=== PATIENT | female | born 1940 | race Caucasian/White ===

== ENCOUNTER → 2017-07-25 | Outpatient (CLI) | payer MEDICARE, BC ==
[~2017-07-25] MED LIST: AMBIEN PAK10 MG; Z.0.MELOXICAM15 MG; [UNRECOGNIZED DRUG - OTHER]
--- NOTE | 2017-08-01 18:11 | Diagnostic Imaging Report ---
#[id number] - MGSCRBIL #BILATERAL DIGITAL SCREENING MAMMOGRAM WITH CAD: 07/25/2017 Comparison is made to exams dated: 01/20/2013 mammogram and 12/13/2011 mammogram - [facility]. Current study contains 4 films. There are scattered fibroglandular elements in both breasts. Current study was also evaluated with a Computer Aided Detection (CAD) system. There are benign scattered calcifications in both breasts. There is a mole marker on the left breast. No significant masses, calcifications, or other findings are seen in either breast. There has been no significant interval change. IMPRESSION: BENIGN There is no mammographic evidence of malignancy. A 1 year screening mammogram is recommended. The patient will be notified by letter of the results. Nishant cardenas/brandee:07/31/2017 14:19:41 Research Interviewer: Abby WERNER(Marissa)(Herbert), [facility] letter sent: Compared to Prior B9 Mammogram BI-RADS: 2 Benign
== END ==
LOC: MAMMO 08:49
PROVIDERS: ATTEND Family Medicine
DX: Z12.31 Encounter for screening mammogram for malignant neoplasm of breast (principal)
CPT/HCPCS: 77067

== ENCOUNTER 2017-12-24 16:18 | Emergency (ER) | payer MEDICARE, BC ==
[~2017-12-24] VITALS: Ht 157.5 cm; Wt 68.0 kg
[2017-12-24] MEDS ORDERED: ONDANSETRON HCL INJ 2 MG/ML VIAL IV STA (17:36)
[2017-12-24] MEDS ORDERED: MORPHINE SULFATE INJ 4 MG/ML INJ IV PRN (18:00)
[2017-12-24] MEDS ORDERED: MORPHINE SULFATE INJ 4 MG/ML INJ IV ONE (18:00)
--- NOTE | 2017-12-24 18:09 | Diagnostic Imaging Report ---
PROCEDURE:X-RAY RIGHT ANKLE, COMPLETE TECHNIQUE:AP, lateral, and oblique views of the right ankle. INDICATION:Fall, ankle pain COMPARISON:None. FINDINGS: Mildly displaced oblique fracture through the fibula at the level of the syndesmosis and avulsion of the medial malleolus with associated soft tissue swelling. CONCLUSION: Mildly displaced oblique fracture through the fibula at the level of the syndesmosis and avulsion of the medial malleolus. Dictated by: Roni Najera M.D. on 12/24/2017 at 18:15 Electronically approved by: Roni Najera M.D. on 12/24/2017 at 18:15
--- NOTE | 2017-12-24 18:26 | Diagnostic Imaging Report ---
History:Fall, hit the for head Comparison studies:MRI brain 12/08/2009 Technique: Axial images were obtained from the skull base to the vertex. Coronal and sagittal images reconstructed from the axial data. Intravenous contrast: None Findings: Scalp/skull: No abnormalities. Extra-axial spaces: No masses. No fluid collections. Brain sulci: Mildly prominent. Ventricles: Mild compensatory dilatation. No hydrocephalus. Parenchyma: Confluent hypodensities in the supratentorial white matter are small vessel ischemic changes. Encephalomalacia at the mid corpus callosum body No masses, hemorrhage, acute or chronic cortical vascular insults. Sellar/suprasellar region: No abnormalities. Craniocervical junction: Patent foramen magnum. No Chiari one malformation. Incidental findings: Atherosclerotic calcifications in the carotid siphons . Impression: No acute abnormalities. Chronic findings: 1. Mild generalized volume loss. 2. Nonspecific confluent supratentorial white matter hypodensities, could be seen in severe chronic microvascular ischemic changes. Signed by: DR Sukhjinder Carrillo M.D. on 12/24/2017 6:22 PM
--- NOTE | 2017-12-24 18:30 | Diagnostic Imaging Report ---
History: Fall Comparison studies: None Technique: Axial images were obtained through the cervical region.. Coronal and sagittal images reconstructed from the axial data.. Intravenous contrast: None Findings: Fractures: None. Soft tissues: No gross abnormalities. Atlantoaxial articulation: No acute abnormality. Decreased predental space, sclerotic changes and marginal osteophytes. Alignment: Straightening of the normal lordosis. No scoliosis. Cervicomedullary junction: No abnormalities. The foramen magnum is patent. Vertebrae: No infection or neoplasm. Degenerative changes: At C3-4 bilateral uncinate process and facet hypertrophy results in mild canal stenosis and moderate bilateral foraminal narrowing. At C4-5, right uncinate process hypertrophy and facet hypertrophy results in mild right foraminal narrowing without significant canal stenosis. At C5-6, bilateral uncinate process hypertrophy and facet hypertrophy results in mild bilateral foraminal narrowing. At C6-7, bilateral uncinate process hypertrophy results in mild right and moderate left foraminal narrowing without significant canal stenosis. IMPRESSION: 1. No acute cervical spine abnormalities. Degenerative changes as described above 2. Cannot exclude ligament, spinal cord and or vascular abnormalities on the basis of this examination. Signed by: DR Sukhjinder Carrillo M.D. on 12/24/2017 6:27 PM
[2017-12-24] MEDS ORDERED: ULTRAM50 MG PO (18:49)
[2017-12-24] MEDS ORDERED: walker (18:54)
[2017-12-24 19:28] VITALS: BP 129/65
== END 2017-12-24 20:00 | disposition home or self-care (01) ==
LOC: ER 16:18
DX: S82.51XA Displaced fracture of medial malleolus of right tibia, initial encounter for closed fracture (principal); S82.61XA Displaced fracture of lateral malleolus of right fibula, initial encounter for closed fracture; X50.1XXA Overexertion from prolonged static or awkward postures, initial encounter; Y92.008 Other place in unspecified non-institutional (private) residence as the place of occurrence of the external cause
CPT/HCPCS: 29515; 70450; 72125; 73502; 73610; 93005; 99284; J2270; J2405

== ENCOUNTER 2017-12-26 08:30 | Emergency (ER) | payer MEDICARE, BC ==
[~2017-12-26] VITALS: Ht 157.5 cm; Wt 68.0 kg
[~2017-12-26 08:30] MED LIST changes: +ULTRAM50 MG PO; +walker
[2017-12-26] MEDS ORDERED: ACETAMINOPHEN 325 MG TAB PO ONE (08:45)
[2017-12-26 10:02] LABS: BASOPHILS % 0.2 % (0.0-1.0); EOSINOPHILS # (AUTO) 0.1 (0.0-0.4); EOSINOPHILS % 1.5 % (0.0-6.0); HEMATOCRIT 38.8 % (34.2-44.1); HEMOGLOBIN 13.2 g/dL (12.0-16.0); LYMPHOCYTES # (AUTO) 1.2 (1.0-3.2); LYMPHOCYTES % 13.6 % (18.0-39.1); MEAN CORPUSCULAR HEMOGLOBIN 32.4 pg (28-32); MEAN CORPUSCULAR VOLUME 95.3 fL (81-99); MONOCYTES # (AUTO) 0.8 (0.2-0.8); MONOCYTES % 9.1 % (4.4-11.3); NEUTROPHILS # (AUTO) 6.7 (2.1-6.9); NEUTROPHILS % 75.3 % (38.7-80.0); PLATELET COUNT 160 x10e3/uL (140-360); RED BLOOD COUNT 4.07 x10e6/uL (3.6-5.1); RED CELL DISTRIBUTION WIDTH 12.3 % (11.7-14.4)
[2017-12-26 10:43] LABS: CLARITY,URINE SL CLOUDY (CLEAR); COLOR,URINE YELLOW (YELLOW); LEUKOCYTE ESTERASE ,URINE 1+ (NEGATIVE); NITRITE,URINE NEGATIVE (NEGATIVE)
[2017-12-26 10:44] LABS: BILIRUBIN,URINE NEGATIVE (NEGATIVE); KETONES,URINE 1+ (NEGATIVE); PROTEIN,URINE DIPSTICK NEGATIVE (NEGATIVE); URINE UROBILINOGEN 0.2 mg/dL (0.2 - 1)
[2017-12-26 10:51] LABS: RBC,URINE 0-5 /HPF (0-5)
[2017-12-26 10:52] LABS: BACTERIA,URINE MODERATE /HPF; EPITHELIAL CELLS,URINE MANY /LPF; RENAL EPITHELIAL CELLS,URINE RARE; TRANSITIONAL EPI CELLS,URINE RARE
[2017-12-26 10:57] LABS: ALBUMIN 3.4 g/dL (3.5-5.0); ALBUMIN/GLOBULIN RATIO 0.9 (0.8-2.0); ANION GAP 15.7 mmol/L (8-16); CREATININE, SERUM 1.33 mg/dL (0.57-1.11); POTASSIUM 4.7 mmol/L (3.5-5.1)
--- NOTE | 2017-12-26 11:24 | Diagnostic Imaging Report ---
PROCEDURE: A single AP view of the chest. COMPARISON: Chest radiograph 04/03/2010. INDICATIONS: FEVER, FALL, UNABLE TO URINATE FINDINGS: Lines/tubes: None. Lungs: Mild patchy left basilar opacity. The right lung is clear.No evidence of pulmonary edema. Pleura: There is no pleural effusion or pneumothorax. Heart and mediastinum: The cardiomediastinal silhouette is unremarkable. Bones: No acute bony abnormality. IMPRESSION: No evidence of pneumothorax or displaced fracture. Mild patchy left basilar opacity which may represent atelectasis. Pneumonia is possible in the appropriate clinical setting. Dictated by: BALJINDER LARA M.D. on 12/26/2017 at 9:57 Electronically approved by: BALJINDER LARA M.D. on 12/26/2017 at 9:57
[2017-12-26] MEDS ORDERED: CEFTRIAXONE SOD 1 GM VIAL IV ONE (11:30)
[2017-12-26] MEDS ORDERED: SODIUM CHLORIDE 0.9% 1000ML 1,000 ML IV SCH (11:30)
--- NOTE | 2017-12-26 12:40 | Diagnostic Imaging Report ---
EXAM: CT Abdomen and Pelvis WITHOUT contrast INDICATION: \S\urinary retention \[id number] \S\[id number] COMPARISON: None. TECHNIQUE: Abdomen and pelvis were scanned utilizing a multidetector helical scanner from the lung base to the pubic symphysis without administration of IV contrast. Absence of intravenous contrast decreases sensitivity for detection of focal lesions and vascular pathology. Coronal and sagittal reformations were obtained. Routine protocol was performed. IV CONTRAST: None ORAL CONTRAST: Water COMPLICATIONS: None RADIATION DOSE: Total DLP: 514.6 mGy*cm Estimated effective dose: (DLP x 0.015 x size factor) mSv CTDIvol has been reviewed. It is below the limits set by the Radiation Protocol Committee (RPC). FINDINGS: LINES and TUBES: Hidalgo catheter in place. LOWER THORAX: There is bibasilar atelectasis. HEPATOBILIARY: No focal hepatic lesions. No biliary ductal dilation. GALLBLADDER: No radio-opaque stones or sludge. No wall thickening. SPLEEN: No splenomegaly. PANCREAS: No focal masses or ductal dilatation. ADRENALS: No adrenal nodules KIDNEYS/URETERS: No hydronephrosis. No cystic or solid mass lesions. No stones. GI TRACT: No abnormal distention, wall thickening, or evidence of bowel obstruction. Colonic diverticulosis without evidence of diverticulitis. PELVIC ORGANS/BLADDER: Hysterectomy. Collapsed bladder. LYMPH NODES: No lymphadenopathy. VESSELS: There is mild atherosclerotic disease in the aorta and major arterial branches. PERITONEUM / RETROPERITONEUM: No free air or fluid. BONES: There are degenerative changes in the lumbar spine. Retrolisthesis of L4 on L5. SOFT TISSUES: Unremarkable. IMPRESSION: 1. No acute abnormalities in the abdomen and pelvis. 2. Colonic diverticulosis. Signed by: DR. Roni Najera MD on 12/26/2017 12:37 PM
[2017-12-30] MEDS ORDERED: LASIX20 MG PO (17:39)
[2017-12-30] MEDS ORDERED: PRAVASTATIN SOD20 MG PO (17:39)
[2017-12-30] MEDS ORDERED: ULTRAM 50MG50 MG PO (17:39)
[2017-12-30] MEDS ORDERED: CEFUROXIME500 MG PO (17:40)
[2017-12-30] MEDS ORDERED: ZOLPIDEM TARTRA10 MG PO (17:40)
[2017-12-30] MEDS ORDERED: GABAPENTIN300 MG PO (17:41)
[2017-12-30] MEDS ORDERED: LOSARTAN POTAS100 MG PO (17:41)
== END 2017-12-26 14:45 | disposition home or self-care (01) ==
LOC: ER 08:30
DX: R50.9 Fever, unspecified (principal); R33.9 Retention of urine, unspecified; N30.90 Cystitis, unspecified without hematuria; G35 Multiple sclerosis; I34.1 Nonrheumatic mitral (valve) prolapse; G89.29 Other chronic pain
CPT/HCPCS: 36415; 51702; 71045; 74176; 80053; 81001; 83605; 85025; 87086; 99284; J0696; J7030; 51700

== ENCOUNTER → 2017-12-31 | Day surgery (SDC) | payer MEDICARE, BC ==
[~2017-12-31] MED LIST changes: +ACETAMINOPHEN 1000 MG/100 ML 100 ML IV ONE; +ACETAMINOPHEN 1000 MG/100 ML IV ONE; +ACETAMINOPHEN/CODEINE 300MG - 30MG TAB ONE; +BACITRACIN 50,000 UNIT VIAL ONE; +BUPIVACAINE HCL 0.5% INJ 30 ML VIAL INJ ONE; +CEFAZOLIN SOD 2 GM/D5W 50ML 50 ML IV ONE; +CEFUROXIME500 MG PO; +DEXAMETHASONE SOD PHOS INJ 4 MG/ML VIAL ONE; +FENTANYL CITRATE/PF 100MCG/2 ML INJ ONE; +GABAPENTIN300 MG PO; +LASIX20 MG PO; +LIDOCAINE HCL 2% LOCAL INJ 5 ML SDV VIAL INJ ONE; +LOSARTAN POTAS100 MG PO; +MIDAZOLAM HCL 2 MG/2 ML VIAL ONE; +PRAVASTATIN SOD20 MG PO; +PROPOFOL IV EMULSION 10 MG/ML 20 ML VIAL ONE; +SEVOFLURANE INHAL SOLN 250 ML PEN BTL ONE; +ULTRAM 50MG50 MG PO; +ZOLPIDEM TARTRA10 MG PO
--- NOTE | 2018-01-05 16:39 | Operative Report ---
DATE OF PROCEDURE: December 31, 2017 PREOPERATIVE DIAGNOSIS: Displaced bimalleolar right ankle fracture. POSTOPERATIVE DIAGNOSIS: Displaced bimalleolar right ankle fracture. PROCEDURE PERFORMED: Patient underwent a closed reduction of right ankle mortise followed by an open reduction and internal fixation of right fibular fracture followed by closed reduction and percutaneous screw fixation of a right medial malleolus fracture. 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 ANESTHESIA: General endotracheal intubation anesthesia. IV FLUIDS: Per anesthesia record. BRIEF DESCRIPTION OF OPERATIVE PROCEDURE: Ms. Goyal was taken to the operating room and placed in supine position on the operating table. Following induction of general anesthesia as well as endotracheal intubation, patient's right lower extremity was examined under anesthesia. She was found to have bruising and ecchymosis over the ankle joint. Fluoroscopic evaluation of the ankle joint demonstrated a displaced bimalleolar ankle fracture with mild subluxation of the tibiotalar joint. The patient's lower extremity was prepped and draped in standard surgical fashion. The case was begun by reducing the patient's ankle mortise. An incision was then created over the fibula. This incision was carried through skin only. Blunt dissection was used to deepen the incision to the level of the fibular fracture. The superficial peroneal nerve was identified and protected throughout the remainder of the case. Soft tissues were elevated anteriorly and posteriorly over the fibula, exposing the patient's fracture. The fracture was reduced and held in place with a 0.062 K-wire. A plate was then contoured to the lateral aspect of the fibula and this plate was then affixed to the fibula with a combination of both cortical and cancellous screws. Fluoroscopic evaluation of the ankle joint demonstrated reduction of the patient's fibular fracture, realignment of ankle mortise as well as realignment of the patient's medial malleolus fracture. This wound was copiously irrigated and closed in a multilayer fashion. Attention was then turned to the medial malleolus injury. A pin from the 4.0 cannulated screw system was inserted through the skin and placed against the tip of the medial malleolus. This pin was then advanced within the medial malleolus and the position of the pin was checked in both the AP and lateral planes and found to be appropriate. A 4.0 cannulated screw was then placed over the pin and compression was placed across the patient's fracture site. This was visualized using fluoroscopy. A second screw was similarly inserted anterior to the first using a pin from the 4.0 set and subsequently with a screw inserted over the pin. The 2 wounds for the cannulated screws were irrigated thoroughly. The ankle was then visualized fluoroscopically in 3 planes and this confirmed reduction of the patient's ankle injury and stabilization with screws in place. All wounds were dressed sterilely. The patient's ankle was then placed in a well-padded 3-sided splint. The patient was then awakened and taken to the postanesthesia care unit in stable condition. Job#: [id number] JENNIFER
--- OUTSIDE RECORDS SUMMARY | 2018-02-19 01:57 | XMS REPORT | Continuity of Care Document ---
Author Author [facility] Organization [facility] Address [address] [place] [address] Phone Unavailable Care Team Providers Care Flight Reservations Manager Name Role Phone MARY SEALS MD PCP Insurance Providers Guarantor Ki Goyal Address [address] [place] [address] Email [facility] Policy Number [id number] Subscriber's Name Ki Goyal Relationship 18 Self / Same As Patient Group Number [id number] Group Name RETIRED Effective Date 08 Payer Medicare A & B Policy Number [id number] Subscriber's Name Ki Goyal Relationship 18 Self / Same As Patient Group Name RETIRED Effective Date 06 Advance Directives Directive Response Recorded Date/Time Does the patient have an advance directive? No 01/22/12 2:07pm If yes, is advance directive on file with [facility]? No 10/18/09 1:14pm If not on file with [facility] will patient provide a copy? No 10/30/11 4:56am Do you have a Directive to Physician? No 12/26/17 8:34am Do you have a Medical Power of Contract Administrative Assistant? No 12/26/17 8:34am Do you have an out of hospital Do Not Resuscitate Order? No 12/26/17 8:34am Do you have any special needs we should be aware of? No 12/26/17 8:34am Do you have a support person here with you today? Yes 12/26/17 9:56am Did patient receive Notice of Privacy Practices? Yes 12/26/17 8:34am Did patient receive patient rights and responsibilities? Yes 12/26/17 8:34am Problems No problem information available. Medications Current Home Medications Medication Dose Units Route Directions Days Qty Instructions Start Date Hydrocodone Bit/Acetaminophen (Stagesic 5-500 Capsule) 1 Each Capsule Bedtime Meloxicam 15 Mg Tablet Bedtime Tramadol Hcl (Ultram) 50 Mg Tablet 50 Mg Oral Every 6 Hours as needed for Pain 10 Days 20 Tab 12/24/17 Walker for Please Dispense One 12/24/17 Zolpidem Tartrate (Ambien Philipp) 10 Mg Tablet Bedtime Social History No social history information available. Hospital Discharge Instructions No hospital discharge instruction information available. Plan of Care Discharge Date 12/26/17 2:45pm Disposition HOME, SELF-CARE Condition at Discharge Stable Instructions/Education Provided Urinary Tract Infection - Women Forms Provided Work/School Excuse Prescriptions See Medication Section Referrals MARY SEALS MD Order Date: Call for an appointment Address: [address] [place] [id number] Additional Instructions/Education DC HOME FOLLOW UP WITH PCP TAKE MEDS DIRECTED Functional Status No functional status information available. Allergies, Adverse Reactions, Alerts Allergen Type Severity Reaction Status Last Updated Aspirin Allergy Mild WATER RETENTION Active 12/24/17 PLASTIC TAPE Allergy Mild RASH,BLISTERS Active 11/05/11 Immunizations No immunization information available. Vital Signs Acute Vital Signs Vital Response Date/Time Pulse Pulse Rate (adult) 77 bpm (60 - 90) 12/24/2017 7:28pm Respiratory Rate 20 bpm (12 - 24) 12/24/2017 7:28pm Blood Pressure 129/65 mm Hg 12/24/2017 7:28pm Height 5 ft 2 in 12/26/2017 8:34am Weight 150 lb 12/26/2017 8:34am Body Mass Index 27.4 kg/m^2 12/26/2017 8:34am Results Laboratory Results Test Name Result Units Flags Reference Collection Date/Time Result Date/ Time Comments White Blood Count 8.92 x10e3/uL 4.8-10.8 12/26/2017 9:46am 12/26/2017 10:04am Red Blood Count 4.07 x10e6/uL 3.6-5.1 12/26/2017 9:46am 12/26/2017 10: 04am Hemoglobin 13.2 g/dL 12.0-16.0 12/26/2017 9:46am 12/26/2017 10:04am Hematocrit 38.8 % 34.2-44.1 12/26/2017 9:46am 12/26/2017 10:04am Mean Corpuscular Volume 95.3 fL 81-99 12/26/2017 9:46am 12/26/2017 10: 04am Mean Corpuscular Hemoglobin 32.4 pg H 28-32 12/26/2017 9:46am 2017 10:04am Mean Corpuscular Hemoglobin Concent 34.0 g/dL 31-35 12/26/2017 9:46am 12/26/2017 10:04am Red Cell Distribution Width 12.3 % 11.7-14.4 12/26/2017 9:46am 2017 10:04am Platelet Count 160 x10e3/uL 140-360 12/26/2017 9:46am 12/26/2017 10: 04am Neutrophils (%) (Auto) 75.3 % 38.7-80.0 12/26/2017 9:46am 12/26/2017 10 :04am Lymphocytes (%) (Auto) 13.6 % L 18.0-39.1 12/26/2017 9:46am 12/26/2017 10:04am Monocytes (%) (Auto) 9.1 % 4.4-11.3 12/26/2017 9:46am 12/26/2017 10: 04am Eosinophils (%) (Auto) 1.5 % 0.0-6.0 12/26/2017 9:46am 12/26/2017 10: 04am Basophils (%) (Auto) 0.2 % 0.0-1.0 12/26/2017 9:46am 12/26/2017 10: 04am IM GRANULOCYTES % 0.3 % 0.0-1.0 12/26/2017 9:46am 12/26/2017 10:04am Neutrophils # (Auto) 6.7 2.1-6.9 12/26/2017 9:46am 12/26/2017 10: 04am Lymphocytes # (Auto) 1.2 1.0-3.2 12/26/2017 9:46am 12/26/2017 10: 04am Monocytes # (Auto) 0.8 0.2-0.8 12/26/2017 9:46am 12/26/2017 10:04am Eosinophils # (Auto) 0.1 0.0-0.4 12/26/2017 9:46am 12/26/2017 10: 04am Basophils # (Auto) 0.0 0.0-0.1 12/26/2017 9:46am 12/26/2017 10:04am Absolute Immature Granulocyte (auto 0.03 x10e3/uL 0-0.1 12/26/2017 9: 46am 12/26/2017 10:04am Urine Color YELLOW YELLOW 12/26/2017 10:25am 12/26/2017 10:44am Urine Clarity SL CLOUDY CLEAR 12/26/2017 10:2512/26/2017 10:44am Urine Specific [place] 1.020 1.010-1.025 12/26/2017 10:25am 2017 10:44am Urine pH 6 5 - 7 12/26/2017 10:25am 12/26/2017 10:44am Urine Leukocyte Esterase 1+ H NEGATIVE 12/26/2017 10:25am 12/26/2017 10:44am Urine Nitrite NEGATIVE NEGATIVE 12/26/2017 10:25am 12/26/2017 10: 44am Urine Protein NEGATIVE NEGATIVE 12/26/2017 10:25am 12/26/2017 10: 44am Urine Glucose (UA) NEGATIVE NEGATIVE 12/26/2017 10:25am 12/26/2017 10 :44am Urine Ketones 1+ H NEGATIVE 12/26/2017 10:2512/26/2017 10:44am Urine Urobilinogen 0.2 mg/dL 0.2 - 1 12/26/2017 10:25am 12/26/2017 10: 44am Urine Bilirubin NEGATIVE NEGATIVE 12/26/2017 10:25am 12/26/2017 10: 44am Urine Blood NEGATIVE NEGATIVE 12/26/2017 10:25am 12/26/2017 10:44am Urine WBC 6-10 /HPF H 0-5 12/26/2017 10:25am 12/26/2017 10:52am Urine RBC 0-5 /HPF 0-5 12/26/2017 10:25am 12/26/2017 10:52am Urine Bacteria MODERATE /HPF H NONE 12/26/2017 10:25am 12/26/2017 10: 52am Urine Epithelial Cells MANY /LPF NONE 12/26/2017 10:2512/26/2017 10: 52am Urine Transitional Epithelial Cells RARE H NONE 12/26/2017 10:25am 02/2018 10:52am Urine Renal Epithelial Cells RARE H NONE 12/26/2017 10:25am 2017 10:52am Urine Coarse Granular Casts 1-5 H 0 12/26/2017 10:25am 12/26/2017 10: 52am Sodium Level 139 mmol/L 136-145 12/26/2017 10:25am 12/26/2017 10:59am Potassium Level 4.7 mmol/L 3.5-5.1 12/26/2017 10:2512/26/2017 10: 59am Chloride Level 102 mmol/L 98-107 12/26/2017 10:25am 12/26/2017 10:59am Carbon Dioxide Level 26 mmol/L 22-29 12/26/2017 10:25am 12/26/2017 10: 59am Anion Gap 15.7 mmol/L 8-16 12/26/2017 10:25am 12/26/2017 10:59am Blood Urea Nitrogen 24 mg/dL 7-12/26/2017 10:2512/26/2017 10: 59am Creatinine 1.33 mg/dL H 0.57-1.11 12/26/2017 10:25am 12/26/2017 10:59am BUN/Creatinine Ratio 18 6-25 12/26/2017 10:25am 12/26/2017 10:59am Estimat Glomerular Filtration Rate 39 ML/MIN L 60- 12/26/2017 10:25 10:59am Ranges were taken from the National Kidney Disease Education Program and the National Kid[employer] Foundation literature. Reference ranges: 60 or greater: Normal 16-59 (for 3 consecutive months): Chronic kidney disease 15 or less: Kidney failure Glucose Level 93 mg/dL 74-118 12/26/2017 10:25am 12/26/2017 10:59am Calcium Level 10.0 mg/dL 8.4-10.2 12/26/2017 10:25am 12/26/2017 10: 59am Lactic Acid Level 7.8 MG/DL 4.5-19.8 12/26/2017 10:25am 12/26/2017 10: 52am Total Bilirubin 1.5 mg/dL H 0.2-1.2 12/26/2017 10:25am 12/26/2017 10: 59am Aspartate Amino Transf (AST/SGOT) 32 IU/L 5-34 12/26/2017 10:25am 12/26 10:59am Alanine Aminotransferase (ALT/SGPT) 20 IU/L 0-55 12/26/2017 10:25am 02/2018 10:59am Total Protein 7.1 g/dL 6.5-8.1 12/26/2017 10:25am 12/26/2017 10:59am Albumin 3.4 g/dL L 3.5-5.0 12/26/2017 10:25am 12/26/2017 10:59am Globulin 3.7 g/dL H 2.3-3.5 12/26/2017 10:25am 12/26/2017 10:59am Albumin/Globulin Ratio 0.9 0.8-2.0 12/26/2017 10:25am 12/26/2017 10: 59am Alkaline Phosphatase 66 IU/L 40-150 12/26/2017 10:25am 12/26/2017 10: 59am Procedures Procedure Status Date Provider(s) Computed tomography of brain without radiopaque contrast Active 12/24/17 EDUARD KEE MD Computed tomography of cervical spine without contrast Active 12/24/[address] of abdomen and pelvis without contrast Active 12/26/17 SEVERIANO HANDLEY MD Encounters Encounter Location Arrival/Admit Date Discharge/Depart Date Attending Provider Departed Emergency Room [facility] 12/26/17 8:30am 2:45pm SEVERIANO HANDLEY MD Departed Emergency Room [facility] 12/24/17 4:18pm 8:00pm EDUARD KEE MD Registered Clinic [facility] 07/25/17 8:49am MARY SEALS MD
== END | disposition home or self-care (01) ==
LOC: OR 07:26
PROVIDERS: ATTEND Specialist
DX: S82.61XA Displaced fracture of lateral malleolus of right fibula, initial encounter for closed fracture (principal); G35 Multiple sclerosis; H40.9 Unspecified glaucoma; I34.1 Nonrheumatic mitral (valve) prolapse; I44.0 Atrioventricular block, first degree; W18.39XA Other fall on same level, initial encounter; Y93.B9 Activity, other involving muscle strengthening exercises; Y92.009 Unspecified place in unspecified non-institutional (private) residence as the place of occurrence of the external cause; Y99.8 Other external cause status; Z88.6 Allergy status to analgesic agent
CPT/HCPCS: 27814; 76001; C1713 ×7; J1100; J2001; J2250

== ENCOUNTER 2020-11-17 13:05 | Inpatient (IN) | payer MEDICARE, BC ==
[~2020-11-17] VITALS: Ht 157.5 cm; Wt 83.0 kg
[2020-11-17] MEDS: ALBUTEROL SULF 0.083% NEB SOLN 3 ML NEB NEB SCH ×2 (00:30→21:05)
[~2020-11-17 13:05] MED LIST changes: -ACETAMINOPHEN 1000 MG/100 ML 100 ML IV ONE; -ACETAMINOPHEN 1000 MG/100 ML IV ONE; -ACETAMINOPHEN/CODEINE 300MG - 30MG TAB ONE; -BACITRACIN 50,000 UNIT VIAL ONE; -BUPIVACAINE HCL 0.5% INJ 30 ML VIAL INJ ONE; -CEFAZOLIN SOD 2 GM/D5W 50ML 50 ML IV ONE; -DEXAMETHASONE SOD PHOS INJ 4 MG/ML VIAL ONE; -FENTANYL CITRATE/PF 100MCG/2 ML INJ ONE; -LIDOCAINE HCL 2% LOCAL INJ 5 ML SDV VIAL INJ ONE; -MIDAZOLAM HCL 2 MG/2 ML VIAL ONE; -PROPOFOL IV EMULSION 10 MG/ML 20 ML VIAL ONE; -SEVOFLURANE INHAL SOLN 250 ML PEN BTL ONE
[2020-11-17 14:00] LABS: BASOPHILS % 0.2 % (0.0-1.0); EOSINOPHILS # (AUTO) 0.3 (0.0-0.4); EOSINOPHILS % 3.8 % (0.0-6.0); HEMATOCRIT 37.5 % (34.2-44.1); HEMOGLOBIN 12.2 g/dL (12.0-16.0); LYMPHOCYTES % 11.2 % (18.0-39.1); MEAN CORPUSCULAR HGB CONC 32.5 g/dL (31-35); MEAN CORPUSCULAR VOLUME 95.4 fL (81-99); MONOCYTES # (AUTO) 0.9 (0.2-0.8); MONOCYTES % 9.8 % (4.4-11.3); NEUTROPHILS # (AUTO) 6.5 (2.1-6.9); NEUTROPHILS % 74.8 % (38.7-80.0); PLATELET COUNT 147 x10e3/uL (140-360); RED BLOOD COUNT 3.93 x10e6/uL (3.6-5.1); RED CELL DISTRIBUTION WIDTH 13.8 % (11.7-14.4)
[2020-11-17 14:14] LABS: ALBUMIN 3.6 g/dL (3.5-5.0); ALBUMIN/GLOBULIN RATIO 0.9 (0.8-2.0); ANION GAP 14.9 mmol/L (8-16); CALCIUM 9.1 mg/dL (8.4-10.2); CREATININE, SERUM 0.98 mg/dL (0.57-1.11); MAGNESIUM 2.1 MG/DL (1.3-2.1); POTASSIUM 3.9 mmol/L (3.5-5.1)
[2020-11-17 14:20] LABS: CREATINE KINASE MB 0.9 ng/mL (0-5.0)
[2020-11-17] MEDS ORDERED: FUROSEMIDE INJ 10 MG/ML 4 ML VIAL IV ONE (15:30)
[2020-11-17 16:13] LABS: ABG HCO3 31 mmol/L (22-26); ABG PCO2 61 mmHg (35-45); ABG PH 7.32 (7.35-7.45); ABG PO2 113 mmHg (80-105); ABG TCO2 33
[2020-11-17] MEDS ORDERED: METHYLPREDNISOLONE SOD SUCC 125 MG/2ML VIAL IV ONE (18:00)
[2020-11-17] MEDS: CEFTRIAXONE 1 GM in SODIUM CHLORIDE 0.9% 50ML 50 ML IV SCH (18:14)
[2020-11-17] MEDS ORDERED: TRAMADOL HCL 50 MG TAB PO PRN (18:15)
[2020-11-17] MEDS: IPRATROPIUM BROMIDE 0.02% 2.5 ML NEB NEB SCH (21:05)
[2020-11-17] MEDS: ZOLPIDEM TARTRATE 5 MG TAB PO SCH (23:34)
[2020-11-17] MEDS: METHYLPREDNISOLONE SOD SUCC 40 MG/ML VIAL 1ML IV SCH (23:34)
[2020-11-17] MEDS: LOSARTAN POTASSIUM 100 MG TAB PO SCH (23:35)
[2020-11-18] VITALS (21 sets, daily range): BP systolic 122–152; BP diastolic 46–101
[2020-11-18 02:59] LABS: CREATINE KINASE 48 IU/L (29-168)
[2020-11-18 03:42] LABS: BASOPHILS % 0.2 % (0.0-1.0); EOSINOPHILS % 0.2 % (0.0-6.0); HEMATOCRIT 39.9 % (34.2-44.1); HEMOGLOBIN 12.8 g/dL (12.0-16.0); LYMPHOCYTES # (AUTO) 0.4 (1.0-3.2); LYMPHOCYTES % 7.9 % (18.0-39.1); MEAN CORPUSCULAR HEMOGLOBIN 30.7 pg (28-32); MEAN CORPUSCULAR HGB CONC 32.1 g/dL (31-35); MEAN CORPUSCULAR VOLUME 95.7 fL (81-99); MONOCYTES # (AUTO) 0.1 (0.2-0.8); MONOCYTES % 2.3 % (4.4-11.3); NEUTROPHILS # (AUTO) 4.6 (2.1-6.9); NEUTROPHILS % 89.2 % (38.7-80.0); PLATELET COUNT 126 x10e3/uL (140-360); RED BLOOD COUNT 4.17 x10e6/uL (3.6-5.1); RED CELL DISTRIBUTION WIDTH 13.5 % (11.7-14.4)
[2020-11-18 03:56] LABS: ALBUMIN 2.5 g/dL (3.5-5.0); ALBUMIN/GLOBULIN RATIO 0.8 (0.8-2.0); ANION GAP 14.1 mmol/L (8-16); CREATININE, SERUM 0.71 mg/dL (0.57-1.11); POTASSIUM 3.1 mmol/L (3.5-5.1)
[2020-11-18 03:57] LABS: CALCIUM 6.5 mg/dL (8.4-10.2)
[2020-11-18] MEDS: ALBUTEROL SULF 0.083% NEB SOLN 3 ML NEB NEB SCH ×2 (04:10→07:00)
[2020-11-18] MEDS: IPRATROPIUM BROMIDE 0.02% 2.5 ML NEB NEB SCH ×2 (04:10→07:00)
[2020-11-18] MEDS ORDERED: POTASSIUM CHLORIDE 20MEQ/100ML 200 ML IV PRN (05:30)
[2020-11-18] MEDS ORDERED: POTASSIUM CHLORIDE 20MEQ/100ML 100 ML INJ PRN (05:30)
[2020-11-18 06:26] LABS: CLARITY,URINE CLEAR (CLEAR); COLOR,URINE YELLOW (YELLOW); LEUKOCYTE ESTERASE ,URINE TRACE (NEGATIVE); NITRITE,URINE NEGATIVE (NEGATIVE); PROTEIN,URINE DIPSTICK 1+ (NEGATIVE)
[2020-11-18 06:27] LABS: KETONES,URINE 1+ (NEGATIVE); URINE UROBILINOGEN 1 mg/dL (0.2 - 1)
[2020-11-18 06:49] LABS: BACTERIA,URINE RARE /HPF; EPITHELIAL CELLS,URINE FEW /LPF; RBC,URINE 21-50 /HPF (0-5)
[2020-11-18] MEDS: METHYLPREDNISOLONE SOD SUCC 40 MG/ML VIAL 1ML IV SCH ×2 (08:51→20:39)
[2020-11-18] MEDS ORDERED: FUROSEMIDE 20 MG TAB PO SCH (09:00)
[2020-11-18 11:22] LABS: CREATINE KINASE MB 1.1 ng/mL (0-5.0)
[2020-11-18] MEDS ORDERED: POTASSIUM CHLORIDE 10MEQ EA PO ONE ×2 (11:30→13:15)
[2020-11-18] MEDS: FUROSEMIDE INJ 10 MG/ML 4 ML VIAL IV SCH (12:20)
[2020-11-18] MEDS: ALBUTEROL/IPRATROPIUM 3 ML NEB NEB SCH ×2 (14:15→19:00)
[2020-11-18] MEDS ORDERED: ENOXAPARIN SOD INJ 40 MG/0.4 ML SYR SC SCH (17:00)
[2020-11-18] MEDS: ENOXAPARIN SOD INJ 40 MG/0.4 ML SYR SC SCH (17:00)
[2020-11-18] MEDS: CEFTRIAXONE 1 GM in SODIUM CHLORIDE 0.9% 50ML 50 ML IV SCH (18:31)
[2020-11-18] MEDS: LOSARTAN POTASSIUM 100 MG TAB PO SCH (20:39)
[2020-11-18] MEDS: ZOLPIDEM TARTRATE 5 MG TAB PO SCH (20:39)
[2020-11-19] VITALS (15 sets, daily range): BP systolic 119–161; BP diastolic 52–93
[2020-11-19] MEDS: ALBUTEROL/IPRATROPIUM 3 ML NEB NEB SCH ×4 (01:00→19:42)
[2020-11-19 05:00] LABS: HEMATOCRIT 38.9 % (34.2-44.1); HEMOGLOBIN 12.8 g/dL (12.0-16.0); LYMPHOCYTES # (AUTO) 0.6 (1.0-3.2); LYMPHOCYTES % 5.7 % (18.0-39.1); MEAN CORPUSCULAR HEMOGLOBIN 30.5 pg (28-32); MEAN CORPUSCULAR HGB CONC 32.9 g/dL (31-35); MEAN CORPUSCULAR VOLUME 92.8 fL (81-99); MONOCYTES # (AUTO) 0.4 (0.2-0.8); MONOCYTES % 3.8 % (4.4-11.3); NEUTROPHILS # (AUTO) 8.7 (2.1-6.9); NEUTROPHILS % 90.1 % (38.7-80.0); PLATELET COUNT 162 x10e3/uL (140-360); RED BLOOD COUNT 4.19 x10e6/uL (3.6-5.1); RED CELL DISTRIBUTION WIDTH 13.4 % (11.7-14.4)
[2020-11-19 05:21] LABS: ALBUMIN/GLOBULIN RATIO 0.8 (0.8-2.0); ANION GAP 14.9 mmol/L (8-16)
[2020-11-19 05:24] LABS: CALCIUM 9.5 mg/dL (8.4-10.2); POTASSIUM 3.9 mmol/L (3.5-5.1)
[2020-11-19 05:25] LABS: ALBUMIN 3.5 g/dL (3.5-5.0)
[2020-11-19] MEDS: METHYLPREDNISOLONE SOD SUCC 40 MG/ML VIAL 1ML IV SCH ×2 (08:39→20:14)
[2020-11-19] MEDS: FUROSEMIDE INJ 10 MG/ML 4 ML VIAL IV SCH (08:39)
[2020-11-19] MEDS ORDERED: SODIUM CHLORIDE 0.9% 250ML 250 ML ONE ×2 (17:34→20:09)
[2020-11-19] MEDS: ENOXAPARIN SOD INJ 40 MG/0.4 ML SYR SC SCH (17:44)
[2020-11-19] MEDS: CEFTRIAXONE 1 GM in SODIUM CHLORIDE 0.9% 50ML 50 ML IV SCH (17:44)
[2020-11-19] MEDS: ZOLPIDEM TARTRATE 5 MG TAB PO SCH (20:14)
[2020-11-19] MEDS: LOSARTAN POTASSIUM 100 MG TAB PO SCH (20:14)
[2020-11-20] VITALS (8 sets, daily range): BP systolic 114–179; BP diastolic 58–91
[2020-11-20] MEDS: ALBUTEROL/IPRATROPIUM 3 ML NEB NEB SCH ×4 (01:27→19:00)
[2020-11-20 05:25] LABS: BASOPHILS % 0.1 % (0.0-1.0); HEMOGLOBIN 11.9 g/dL (12.0-16.0); LYMPHOCYTES # (AUTO) 0.6 (1.0-3.2); LYMPHOCYTES % 7.5 % (18.0-39.1); MEAN CORPUSCULAR HEMOGLOBIN 30.9 pg (28-32); MEAN CORPUSCULAR HGB CONC 33.1 g/dL (31-35); MEAN CORPUSCULAR VOLUME 93.5 fL (81-99); MONOCYTES # (AUTO) 0.5 (0.2-0.8); MONOCYTES % 5.5 % (4.4-11.3); NEUTROPHILS # (AUTO) 7.1 (2.1-6.9); NEUTROPHILS % 86.5 % (38.7-80.0); PLATELET COUNT 177 x10e3/uL (140-360); RED BLOOD COUNT 3.85 x10e6/uL (3.6-5.1); RED CELL DISTRIBUTION WIDTH 13.8 % (11.7-14.4)
[2020-11-20 05:57] LABS: ALBUMIN 3.3 g/dL (3.5-5.0); ALBUMIN/GLOBULIN RATIO 0.9 (0.8-2.0); ANION GAP 12.5 mmol/L (8-16); CALCIUM 9.1 mg/dL (8.4-10.2); CREATININE, SERUM 0.93 mg/dL (0.57-1.11); POTASSIUM 3.5 mmol/L (3.5-5.1)
[2020-11-20] MEDS: METHYLPREDNISOLONE SOD SUCC 40 MG/ML VIAL 1ML IV SCH ×2 (10:57→21:43)
[2020-11-20] MEDS: FUROSEMIDE INJ 10 MG/ML 4 ML VIAL IV SCH (10:57)
[2020-11-20] MEDS ORDERED: LISINOPRIL 2.5 MG TAB PO SCH (12:45)
[2020-11-20] MEDS: AMLODIPINE BESYLATE 5 MG TAB PO SCH ×2 (13:41→17:30)
[2020-11-20] MEDS: ENOXAPARIN SOD INJ 40 MG/0.4 ML SYR SC SCH (17:30)
[2020-11-20] MEDS: CEFTRIAXONE 1 GM in SODIUM CHLORIDE 0.9% 50ML 50 ML IV SCH (17:30)
[2020-11-20] MEDS: ZOLPIDEM TARTRATE 5 MG TAB PO SCH (21:43)
[2020-11-20] MEDS: PRAVASTATIN 20 MG TAB PO SCH (21:44)
[2020-11-20] MEDS: LOSARTAN POTASSIUM 100 MG TAB PO SCH (21:44)
[2020-11-21] MEDS: ALBUTEROL/IPRATROPIUM 3 ML NEB NEB SCH ×4 (00:30→19:40)
[2020-11-21 01:37] VITALS: BP 119/7
[2020-11-21 06:03] VITALS: BP 131/66
[2020-11-21 08:41] VITALS: BP 106/41
[2020-11-21] MEDS: AMLODIPINE BESYLATE 5 MG TAB PO SCH ×2 (09:00→18:07)
[2020-11-21 09:26] VITALS: BP 106/41
[2020-11-21] MEDS: FUROSEMIDE INJ 10 MG/ML 4 ML VIAL IV SCH (11:14)
[2020-11-21] MEDS: METHYLPREDNISOLONE SOD SUCC 40 MG/ML VIAL 1ML IV SCH ×2 (11:14→20:47)
[2020-11-21] MEDS: ENOXAPARIN SOD INJ 40 MG/0.4 ML SYR SC SCH (18:07)
[2020-11-21] MEDS: CEFTRIAXONE 1 GM in SODIUM CHLORIDE 0.9% 50ML 50 ML IV SCH (18:07)
[2020-11-21 20:00] VITALS: BP 125/55
[2020-11-21 21:49] VITALS: BP 125/55
[2020-11-21] MEDS: ZOLPIDEM TARTRATE 5 MG TAB PO SCH (22:04)
[2020-11-21] MEDS: PRAVASTATIN 20 MG TAB PO SCH (22:04)
[2020-11-21] MEDS: LOSARTAN POTASSIUM 100 MG TAB PO SCH (22:04)
[2020-11-22] VITALS: BP 137/65
[2020-11-22] MEDS: ALBUTEROL/IPRATROPIUM 3 ML NEB NEB SCH ×3 (00:45→13:08)
[2020-11-22 04:00] VITALS: BP 128/57
[2020-11-22 08:25] VITALS: BP 121/62
[2020-11-22 08:59] VITALS: BP 121/62
[2020-11-22] MEDS: AMLODIPINE BESYLATE 5 MG TAB PO SCH ×2 (09:57→17:21)
[2020-11-22] MEDS: FUROSEMIDE INJ 10 MG/ML 4 ML VIAL IV SCH (09:58)
[2020-11-22] MEDS: METHYLPREDNISOLONE SOD SUCC 40 MG/ML VIAL 1ML IV SCH (09:59)
[2020-11-22 11:21] VITALS: BP 108/69
[2020-11-22] MEDS ORDERED: AZITHROMYCIN250 MG PO ×2 (13:47→13:52)
[2020-11-22] MEDS ORDERED: PREDNISONE20 MG PO (13:48)
[2020-11-22 15:36] VITALS: BP 112/62
[2020-11-22] MEDS: ENOXAPARIN SOD INJ 40 MG/0.4 ML SYR SC SCH (17:22)
== END 2020-11-22 17:57 | disposition home or self-care (01) | DRG 177 ==
LOC: ER 13:49 → ERHOLD 18:36 → ICU 11-18 06:15 → MED/SURG2 11-19 16:36
DX: J15.6 Pneumonia due to other Gram-negative bacteria (principal); J96.01 Acute respiratory failure with hypoxia; I50.33 Acute on chronic diastolic (congestive) heart failure; J96.02 Acute respiratory failure with hypercapnia; J44.0 Chronic obstructive pulmonary disease with (acute) lower respiratory infection; J44.1 Chronic obstructive pulmonary disease with (acute) exacerbation; Z20.822 Contact with and (suspected) exposure to COVID-19; I48.0 Paroxysmal atrial fibrillation; Z79.01 Long term (current) use of anticoagulants; R62.7 Adult failure to thrive; Z68.33 Body mass index [BMI] 33.0-33.9, adult; I11.0 Hypertensive heart disease with heart failure; G35 Multiple sclerosis; J20.9 Acute bronchitis, unspecified; G62.9 Polyneuropathy, unspecified; Z87.891 Personal history of nicotine dependence
CPT/HCPCS: 36415; 36600; 51700; 71045; 80053; 81001; 82550; 82553; 82805; 82948; 83735; 83880; 84484; 85025; 87040; 93005; 93306; 94640; 94660; 97139; 99285; J0456; J0696; J1650; J1940; J2920; J2930; J7050; U0002

== ENCOUNTER 2024-06-18 12:17 | Inpatient (IN) | payer MEDICARE, BC ==
[~2024-06-18] VITALS: Ht 157.5 cm; Wt 77.3 kg
[~2024-06-18 12:17] MED LIST changes: +AZITHROMYCIN250 MG PO; +PREDNISONE20 MG PO
[2024-06-18 12:20] VITALS: TEMP 98.9
[2024-06-18 13:47] LABS: BASOPHILS % 0.3 % (0.0-1.0); EOSINOPHILS % 0.2 % (0.0-6.0); HEMATOCRIT 47.7 % (34.2-44.1); HEMOGLOBIN 15.2 g/dL (12.0-16.0); LYMPHOCYTES # (AUTO) 3.2 (1.0-3.2); LYMPHOCYTES % 54.1 % (18.0-39.1); MEAN CORPUSCULAR HEMOGLOBIN 30.8 pg (28-32); MEAN CORPUSCULAR HGB CONC 31.9 g/dL (31-35); MEAN CORPUSCULAR VOLUME 96.6 fL (81-99); MONOCYTES # (AUTO) 0.6 (0.2-0.8); NEUTROPHILS % 33.7 % (38.7-80.0); PLATELET COUNT 156 x10e3/uL (140-360); RED BLOOD COUNT 4.94 x10e6/uL (3.6-5.1); RED CELL DISTRIBUTION WIDTH 13.7 % (11.7-14.4); WHITE BLOOD COUNT 5.84 x10e3/uL (4.8-10.8)
[2024-06-18 14:10] LABS: INR 0.93
[2024-06-18 14:11] LABS: PARTIAL THROMBOPLASTIN TIME 18.6 seconds (23.8-35.5)
[2024-06-18 14:12] LABS: B-TYPE NATRIURETIC PEPTIDE2 11.8 pg/mL (0-100)
[2024-06-18 14:21] LABS: ALBUMIN 3.8 g/dL (3.5-5.0); ANION GAP 17.9 mmol/L (8-16); BILIRUBIN,TOTAL 0.7 mg/dL (0.2-1.2); CALCIUM 9.2 mg/dL (8.4-10.2); CREATININE, SERUM 1.1 mg/dL (0.57-1.11); POTASSIUM 3.9 mmol/L (3.5-5.1); TOTAL PROTEIN 7.7 g/dL (6.5-8.1)
[2024-06-18 14:24] LABS: CLARITY,URINE CLEAR (CLEAR); COLOR,URINE YELLOW (YELLOW)
[2024-06-18 14:25] LABS: BILIRUBIN,URINE NEGATIVE (NEGATIVE); GLUCOSE, URINE NEGATIVE (NEGATIVE); KETONES,URINE NEGATIVE (NEGATIVE); LEUKOCYTE ESTERASE ,URINE NEGATIVE (NEGATIVE); NITRITE,URINE NEGATIVE (NEGATIVE); PH,URINE 6 (5 - 7); PROTEIN,URINE DIPSTICK 1+ (NEGATIVE); URINE UROBILINOGEN 0.2 mg/dL (0.2 - 1)
[2024-06-18 14:28] LABS: INFLUENZA A AG NEGATIVE (NEGATIVE); INFLUENZA B AG NEGATIVE (NEGATIVE)
[2024-06-18 14:29] LABS: CORONAVIRUS COVID-19 AG NEGATIVE (NEGATIVE); TROPONIN I 0.016 ng/mL (0-0.300)
[2024-06-18 14:36] LABS: BACTERIA,URINE MODERATE /HPF; EPITHELIAL CELLS,URINE FEW /LPF; MUCUS,URINE MANY (RARE)
[2024-06-18 14:50] LABS: ABG HCO3 29 mmol/L (22-26); ABG PCO2 47 mmHg (35-45); ABG PO2 96 mmHg (80-105); ABG TCO2 30
[2024-06-18] MEDS: SODIUM CHLORIDE 0.9% 500ML 500 ML IV ONE (15:51)
[2024-06-18] MEDS ORDERED: ONDANSETRON HCL INJ 2MG/ML 2ML 2 MG/ML VIAL IV PRN (16:00)
[2024-06-18 16:04] VITALS: PULSE 77; RESP 18
[2024-06-18] MEDS ORDERED: IOPAMIDOL 370 MG/ML 100 ML INFUS..BTL INJ ONE (16:13)
[2024-06-18 16:50] VITALS: PULSE 74; RESP 23; O2SAT 96
[2024-06-18] MEDS ORDERED: METOPROLOL TARTRATE INJ 1 MG/ML VIAL IV PRN (18:30)
[2024-06-18] MEDS ORDERED: SIMETHICONE 80 MG CHEW PO PRN (18:30)
[2024-06-18 19:20] VITALS: PULSE 81; RESP 18; O2SAT 96
[2024-06-18] MEDS: METHYLPREDNISOLONE SOD SUCC 40 MG/ML VIAL 1ML IV SCH (20:30)
[2024-06-18] MEDS ORDERED: PRAVASTATIN 20 MG TAB PO SCH (21:00)
[2024-06-18] MEDS ORDERED: MELATONIN 3 MG TAB PO PRN (21:00)
[2024-06-18 21:19] VITALS: BP 136/59; PULSE 80; RESP 21; TEMP 98.3; O2SAT 98
[2024-06-18 22:00] VITALS: BP 136/59; PULSE 80; RESP 21; TEMP 98.3; O2SAT 98
[2024-06-18] MEDS: SIMVASTATIN 20 MG TAB PO SCH (22:32)
[2024-06-18] MEDS: ZOLPIDEM TARTRATE 5 MG TAB PO SCH (22:33)
[2024-06-18] MEDS: BENZONATATE 100 MG CAP PO SCH (22:33)
[2024-06-19] VITALS (10 sets, daily range): BP systolic 121–152; BP diastolic 57–71; PULSE 72–84; RESP 17–21; TEMP 97.8–98.8; O2SAT 95–98
[2024-06-19 09:11] LABS: BASOPHILS % 0.3 % (0.0-1.0); HEMATOCRIT 41.9 % (34.2-44.1); HEMOGLOBIN 13.4 g/dL (12.0-16.0); LYMPHOCYTES # (AUTO) 0.6 (1.0-3.2); LYMPHOCYTES % 18.4 % (18.0-39.1); MEAN CORPUSCULAR HEMOGLOBIN 30.7 pg (28-32); MEAN CORPUSCULAR VOLUME 96.1 fL (81-99); MONOCYTES # (AUTO) 0.2 (0.2-0.8); NEUTROPHILS # (AUTO) 2.4 (2.1-6.9); NEUTROPHILS % 75.7 % (38.7-80.0); PLATELET COUNT 118 x10e3/uL (140-360); RED BLOOD COUNT 4.36 x10e6/uL (3.6-5.1); RED CELL DISTRIBUTION WIDTH 13.3 % (11.7-14.4)
[2024-06-19 09:53] LABS: ALBUMIN 3.2 g/dL (3.5-5.0); ANION GAP 13.4 mmol/L (8-16); BILIRUBIN,TOTAL 0.4 mg/dL (0.2-1.2); CALCIUM 8.7 mg/dL (8.4-10.2); CREATININE, SERUM 0.79 mg/dL (0.57-1.11); POTASSIUM 4.4 mmol/L (3.5-5.1); TOTAL PROTEIN 6.4 g/dL (6.5-8.1)
[2024-06-19 09:56] LABS: TROPONIN I 0.013 ng/mL (0-0.300)
[2024-06-19 10:48] LABS: ANION GAP 18.3 mmol/L (8-16); CALCIUM 8.4 mg/dL (8.4-10.2); CREATININE, SERUM 0.86 mg/dL (0.57-1.11); POTASSIUM 4.3 mmol/L (3.5-5.1)
[2024-06-19] MEDS: LORATADINE 10 MG TAB PO SCH (11:10)
[2024-06-19] MEDS: ENOXAPARIN SOD INJ 40 MG/0.4 ML SYR SC SCH (18:12)
[2024-06-19] MEDS: GUAIFENESIN/DEXTROMETHORPHAN LIQD 5 ML UDC NG PRN (18:16)
[2024-06-19] MEDS: DOCUSATE SODIUM 100 MG CAP PO PRN (18:16)
[2024-06-19] MEDS: ACETAMINOPHEN 325 MG TAB PO PRN (18:17)
[2024-06-20] VITALS (9 sets, daily range): BP systolic 138–185; BP diastolic 65–85; PULSE 70–80; RESP 18–23; TEMP 97.5–98.2; O2SAT 93–99
[2024-06-20 07:31] LABS: TROPONIN I 0.012 ng/mL (0-0.300)
[2024-06-21] VITALS (12 sets, daily range): BP systolic 124–185; BP diastolic 57–93; PULSE 70–80; RESP 17–19; TEMP 97.6–98.2; O2SAT 94–98
[2024-06-21 06:55] LABS: CALCIUM 8.7 mg/dL (8.4-10.2); CREATININE, SERUM 0.82 mg/dL (0.57-1.11)
[2024-06-22] VITALS (8 sets, daily range): BP systolic 131–172; BP diastolic 72–80; PULSE 72–87; RESP 16–20; TEMP 97.1–98.2; O2SAT 94–98
[2024-06-22] MEDS ORDERED: LORATADINE10 MG PO (09:52)
[2024-06-22] MEDS ORDERED: BENZONATATE100 MG PO (09:52)
[2024-06-22] MEDS ORDERED: PREDNISONE20 MG PO (09:52)
[2024-06-22] MEDS ORDERED: CEPHALEXIN500 MG PO (09:52)
[2024-06-22] MEDS ORDERED: ONDANSETRON HCL 4 MG ORAL DISINTEGRATING TAB PO PRN (10:00)
[2024-06-22] MEDS: ALBUTEROL/IPRATROPIUM 3 ML NEB NEB PRN (11:29)
[2024-06-22] MEDS: AZITHROMYCIN 250 MG TAB PO SCH (14:47)
[2024-06-24 07:48] LABS: ABG HCO3 29 mmol/L (22-26); ABG PCO2 47 mmHg (35-45); ABG PO2 96 mmHg (80-105); ABG TCO2 30
== END 2024-06-22 15:45 | disposition home health service (06) | DRG 871 ==
LOC: ER 12:35 → ERHOLD 15:58 → MED/SURG3 22:14
PROVIDERS: ADMIT Internal Medicine; ATTEND Internal Medicine
PROC: 4A133R1 Monitoring of Arterial Saturation, Peripheral, Percutaneous Approach (ICD-10-PCS; principal; 2024-06-18)
PROC: 3E0333Z Introduction of Anti-inflammatory into Peripheral Vein, Percutaneous Approach (ICD-10-PCS; 2024-06-18)
DX: A41.9 Sepsis, unspecified organism (principal); J96.21 Acute and chronic respiratory failure with hypoxia; I13.0 Hypertensive heart and chronic kidney disease with heart failure and stage 1 through stage 4 chronic kidney disease, or unspecified chronic kidney disease; I50.32 Chronic diastolic (congestive) heart failure; N39.0 Urinary tract infection, site not specified; N17.9 Acute kidney failure, unspecified; J44.1 Chronic obstructive pulmonary disease with (acute) exacerbation; I48.20 Chronic atrial fibrillation, unspecified; G35 Multiple sclerosis; N18.9 Chronic kidney disease, unspecified; M81.0 Age-related osteoporosis without current pathological fracture; M54.9 Dorsalgia, unspecified; Z11.52 Encounter for screening for COVID-19; Z79.52 Long term (current) use of systemic steroids; Z90.710 Acquired absence of both cervix and uterus; Z88.6 Allergy status to analgesic agent; Z87.891 Personal history of nicotine dependence
CPT/HCPCS: 36415; 36600; 71045; 71260; 80048; 80053; 81001; 82550; 82805; 83605; 83880; 84484; 85025; 85610; 85730; 87040; 87086; 93005; 93306; 94640; 94799; 99284; J0696; J1650; J2919; J7040; J7050; Q9967